=== PATIENT | female | born 1970 | race Caucasian/White ===

== ENCOUNTER 2016-08-02 12:50 | Emergency (ER) | payer SELFPAY ==
[~2016-08-02] VITALS: Ht 167.6 cm; Wt 63.6 kg
[2016-08-02 13:01] VITALS: BP 137/86; PULSE 52; RESP 14; O2SAT 100
--- NOTE | 2016-08-02 13:57 | ED.REPORT ---
HPI-Extremity Problem Lower Date of Service Aug 02, 2016 ED Provider: Elias Melara PA-C Tin is 45-year-old female with chief complaint of right knee pain. She states that 2 days ago her knee gave out to the inside and she heard crunching. She states that the knee is painful and feels unstable. She has been wrapping with an Colin bandage. She treats the pain with 100 mg ibuprofen and THC. She reports has been difficult to walk on. Nursing Notes Stated Complaint: RIGHT LEG INJURY Chief Complaint: Extremity Trauma Nursing Notes Reviewed: Yes Allergies: Coded Allergies: codeine (Verified Allergy, Intermediate, nausea, 08/02/16) Uncoded Allergies: PENICILLIN (Allergy, Mild, rash, 08/02/16) General Time Seen by MD: 13:43 Chief Complaint Knee injury right Past Medical History Past Medical History Denies Review of Systems Review of Systems Note: Negative unless stated otherwise in history of present illness Physical Exam General: Well appearing, well developed, well nourished, no acute distress. Right hip: Nontender, full range of motion Right knee: Moderate fullness, tenderness over patella. Negative apprehension sign. No medial or lateral joint line tenderness. Right foot/ankle: Nontender, full range of motion, PT and PT pulses 2+. Head: Atraumatic, normocephalic. Eyes: No scleral icterus or injection. No discharge. Vision grossly intact. ENT: Voice clear, hearing grossly intact. Respiratory: No respiratory distress, no increased work of breathing. Speaks in complete sentences. Skin: Warm and dry. Neurological: Grossly nonfocal. Psychological: alert and oriented. Speech appropriate, linear and logical. Behavior appropriate. Initial Vital Signs Vital Signs (First) Date Time Temp Pulse Resp B/P Pulse Ox O2 Delivery O2 Flow Rate FiO2 08/02/16 13:01 36.3 52 14 137/86 100 Room Air Initial VS: Vital signs normal Interpretation & Diagnostics X-Ray Interpretation Xray Interpretation: PROCEDURE: X-RAY RIGHT KNEE, THREE VIEWS ([id number]) INDICATIONS: right knee pain TECHNIQUE: 3 views of the knee were acquired. COMPARISON: None. FINDINGS: Bones: No fractures or dislocations. No suspicious bony lesions. Soft tissues: There is a small to moderate-sized right knee joint effusion. No suspicious soft tissue calcifications. IMPRESSION: 1. No acute fracture of the right knee. 2. Small to moderate-sized right knee joint effusion. If there is clinical concern for internal derangement, please consider MRI for further evaluation. Re-Eval/Medical Decision Med Decision/Clinical Course 35-year-old female with chief complaint right knee pain. She reports her knee gave out to the inside 2 days ago. Reports pain and difficulty walking since then. X-ray reveals an effusion but no fracture. Physical examination reveals no gross instability, neurologic or circulatory deficits. At this point I do not suspect fracture or a spontaneous reduced the dislocation. This is most likely a soft tissue injury. Provided long knee immobilizer brace, crutches and orthopedic follow-up instructions. Advised [id number] anesthesia and provided emergency return precautions. Patient understands and agrees with the plan. Discharge & Departure Impression: Primary Impression: Effusion, right knee Disposition: Home Discharge Condition All VS Reviewed: Yes Condition: Stable Additional Instructions: Evaluation for right knee pain in the emergency department. X-rays revealed no fracture or right knee, but do show some fluid in the joint capsule. This is likely causing most of your pain. There is a possibility of a soft tissue injury to your knee. Typically this requires an MRI to diagnose definitively. We will place the knee in an immobilizer splint and given some crutches. These are for your comfort. Use them as long as you find them helpful. Rest the leg as much as possible and keep it elevated. The pain is best treated with 800 mg of ibuprofen (Advil, Motrin) every 6 hours, or 1000 mg of acetaminophen (Tylenol ) every 6 hours. These drugs can be taken at the same time for more severe pain. I will give you a referral to follow up with a orthopedic surgeon. Please contact them today or tomorrow to arrange follow-up in the next week or so. Return to the emergency department for any new or worsening symptoms including increasing pain, or a numb/cold foot. Referrals: Tigre Cordon MD EDSupervising Provider for APC: Jm Crowder MD copies to: Tigre Cordon MD, Seth PA-C Aug 02, 2016 13:57
--- NOTE | 2016-08-02 14:29 | DRSVH ---
PROCEDURE: X-RAY RIGHT KNEE, THREE VIEWS ([id number]) INDICATIONS: right knee pain TECHNIQUE: 3 views of the knee were acquired. COMPARISON: None. FINDINGS: Bones: No fractures or dislocations. No suspicious bony lesions. Soft tissues: There is a small to moderate-sized right knee joint effusion. No suspicious soft tissu e calcifications. IMPRESSION: 1. No acute fracture of the right knee. 2. Small to moderate-sized right knee joint effusion. If there is clinical concern for internal felipe angement, please consider MRI for further evaluation. Dictated by: Nimesh Willett M.D. on 08/02/2016 at 13:16 Approved by: Nimesh Willett M.D. on 08/02/2016 at 13:27
[2016-08-02 15:13] VITALS: BP 136/87; PULSE 85; RESP 20; O2SAT 98
== END 2016-08-02 15:30 | disposition home or self-care (01) ==
LOC: SED 12:50
DX: M25.461 Effusion, right knee (principal); Z88.5 Allergy status to narcotic agent